=== PATIENT | male | born 1970 | race Caucasian/White ===

== ENCOUNTER 2025-02-12 10:01 | Emergency (ER) | payer SELFPAY ==
[2025-02-12 10:03] VITALS: BP 136/75
--- NOTE | 2025-02-12 10:54 | ED.GENMED ---
History of Present Illness
General
Chief Complaint: Musculo-Skeletal Complaint
Time Seen by Provider: 02/12/25 10:53
History of Present Illness
History of Present Illness:
CHIEF COMPLAINT(S)
Swelling and bruising of the left leg.
HISTORY OF PRESENT ILLNESS
The patient is a 54-year-old male who presents with swelling and ecchymosis of the left leg. The symptoms began Wednesday night when the patient accidentally injured the foot with a serafin. The patient describes the foot as having been swollen due to a
pre-existing condition of diabetes in the family, but the swelling increased significantly following the injury. The incident involved a heavy metal serafin striking the foot, causing immediate bruising and further swelling. The patient had an X-ray
earlier today at an urgent care facility, which showed no fractures but prompted further evaluation for potential blood clots. The ultrasound reveals clots low in the leg, but not in an area typically associated with higher risk. The patient denies
any respiratory difficulties and overall feels well.
EXTERNAL RECORDS REVIEWED
The patient had an X-ray performed earlier today at an urgent care facility, reviewed and noted to be without fractures.
CHRONIC MEDICAL CONDITIONS SIGNIFICANTLY AFFECTING CARE
Diabetes (implied by family history and patients acknowledgment of swelling due to diabetes history).
SOCIAL HISTORY
The patient has a history of smoking.
PHYSICAL EXAM
- Significant swelling noted in the left leg below the knee.
- Ecchymosis observed on the lateral aspect of the left foot.
- Delayed capillary refill of about three seconds bilaterally.
- Nursing notes reviewed and vital signs reviewed.
PLAN
- Initiate anticoagulation therapy consideration. Due to potential cost concerns, consultation with social work is recommended to determine if Coumadin might be a cost-effective option.
- Additional blood work to be performed.
- Monitoring and reassessment of the patients condition, particularly the swelling and potential impact of anticoagulation.
DIFFERENTIAL DIAGNOSIS
The Differential Diagnosis includes, in no particular order, and is not limited to:
- Deep Vein Thrombosis (DVT)
- Superficial Thrombophlebitis
- Cellulitis
- Hematoma
- Venous Insufficiency
- Lymphedema
- Compartment Syndrome
- Trauma
- Peripheral Vascular Disease
- Diabetic Peripheral Neuropathy
REVIEW OF OLD RECORDS
The patient was seen in the emergency room 2022 diagnosed with UTI
NUMBER AND COMPLEXITY OF PROBLEMS ADDRESSED AT THE ENCOUNTER
Chronic conditions affecting care: Diverticular disease, history of substance abuse
Acute Exacerbation and/or Progression of Chronic Illness:
AMOUNT AND/OR COMPLEXITY OF DATA TO BE REVIEWED AND ANALYZED PERSONALLY REVIEWED
EKG:
CT:
X-rays:
Laboratory Studies: Hemoglobin 12.2, normal renal function
Ultrasound: Evidence of peroneal and popliteal vein clots
Clinical information was obtained by an independent historian: None needed
Prescriptions/Medications Considered but not given:
Further testing considered but not performed:
RISK OF COMPLICATIONS AND/OR MORBIDITY OR MORTALITY OF PATIENT MANAGEMENT
Social determinants of health affecting care: Smoker
Discussion with other providers: I discussed case with care management as patient has no insurance
Escalation of care including admission/observation vs risk of discharge considered:
ANY OTHER UPDATES
The patient is found to have peroneal and popliteal vein clots. Would normally placed on Eliquis however the patient has no insurance. I discussed with care management. Will also check labs.
Care management evaluate the patient and also gave the 30-day coupon for Eliquis to the patient. I sent a prescription for Eliquis to his pharmacy. Basic labs unremarkable.
Past History
Past History
ED Past Medical History: None and Other (prostatitis )
ED Past Surgical History: Tonsilectomy
Social History
Tobacco: Smoker (1 PPD X 26 years )
Alcohol: None
Drug: None
Personal:
Living: with family
Employment: Not employed
Phy Exam
Physical Exam
Physical Exam:
See HPI
Course
Orders/Labs/Results
Orders:
Orders
02/12/25 10:07
US Periph Venous LOWER Ext LT Urgent
Comment:
Reason For Exam: swelling, pain
02/12/25 12:31
Complete Blood Count/With Diff Urgent
Comprehensive Metabolic Panel Urgent
Protime/PTT Urgent
02/12/25 13:06
Apixaban [Eliquis] 10 mg PO NOW STA
Abnormal Lab Results
02/12/25
12:31
RBC 3.79 L 10^6/uL
(4.70-6.10)
Hgb 12.2 L g/dL
(13.0-18.0)
Hct 37.0 L %
(39.0-52.0)
MCV 97.6 H fL
(80.0-94.0)
MCH 32.2 H pg
(27.0-31.0)
Carbon Dioxide 31 H mmol/L
(22-30)
BUN 24 H mg/dl
(9-20)
02/12/25 12:31
02/12/25 12:31
Vital Signs
Initial and Last Documented VS:
Initial Vital Signs
Temp Pulse Resp BP Pulse Ox
36.8 C 60 16 136/75 99
02/12/25 10:03 02/12/25 10:03 02/12/25 10:03 02/12/25 10:03 02/12/25 10:03
Last Documented Vital Signs
Temp Pulse Resp BP Pulse Ox
36.8 C 52 16 115/64 99
02/12/25 10:03 02/12/25 11:27 02/12/25 11:27 02/12/25 11:27 02/12/25 11:27
*Critical Care Note
Total Time (30-74mins, 75-104mins- exclusive of procedures): Not Applicable
ED Attending Note
-
Portions of this chart may have been created with voice recognition software.� Occasional wrong word or��sound alike� substitutions may have occurred due to the inherent limitations of voice recognition software.
Discharge Plan
Departure
Patient Disposition: Home (Routine Discharge)
Date of Disposition: 02/12/25
Time of Disposition: 13:06
Patient with high blood pressure during this ER visit?: Yes
Discharge Problem:
Deep vein thrombosis
Instructions: Deep vein thrombosis (DVT) - ED discharge instructions, BLOOD PRESSURE
Prescriptions:
New
Eliquis DVT-PE Treat 30D Start 5 mg (74 tabs) tablets,dose pack
5 mg PO ONCE Qty: 74 0RF
Rx Instructions:
Take 2 pills twice daily for 7 days then 1 pill twice daily
No Action
azithromycin 250 MG tablet
250 mg PO DAILY Qty: 6 0RF
amoxicillin 875 MG tablet
875 mg PO BID Qty: 20 0RF
hydrocodone-acetaminophen [Vicodin] 1 EACH tablet
1 ea PO Q4HPRN PRN (Reason: pain) Qty: 10 0RF
levofloxacin 500 mg tablet
500 mg PO DAILY 7 Days Qty: 7 0RF
Referrals:
[facility] [Outside]
NONE,* [Family Provider, Internal Medicine]
Activity Restrictions/Additional Instructions:
I am sending a prescription for Eliquis to your pharmacy. We had social work give you discount coupon to help make this medication more affordable. Return here if worse or other concerns. I have also given you the contact information for the [facility].
There is nonocclusive clot in the popliteal vein, and occlusive clot in the peroneal vein.
ELIQUIS: Take 2 pills twice daily for 7 days then 1 pill twice daily
Interventions
Interventions:
*Risk Screen - Suicide Last Done: 02/12/25 11:20
*General Assessment Last Done: 02/12/25 11:20
*Neglect/Abuse Screening Last Done: 02/12/25 11:20
*ED- Fall Risk Assessment Last Done: 02/12/25 11:20
*ED COVID-19 Vaccine History Last Done: 02/12/25 11:20
ED-Musculoskeletal Assessment Last Done: 02/12/25 11:20
Discharge Date and Time
Print Language: ARGENTINE
[2025-02-12 11:20] VITALS: BMI 20.6
[2025-02-12 11:27] VITALS: BP 115/64
[2025-02-12 12:41] LABS: % Basophils 0.8 % (0-2); % Eosinophils 2.5 % (0-6); % Immature Granulocytes 0.2 % (0-0.5); % Lymphocytes 27.1 % (20.5-51.1); % Monocytes 5.5 % (1.7-9.3); % Neutrophils 63.9 % (42.2-75.2); Absolute Basophils 0.1 10^3/uL (0-0.2); Absolute Eosinophils 0.2 10^3/uL (0-0.7); Absolute Lymphocytes 2.3 10^3/uL (1.2-3.4); Absolute Monocytes 0.5 10^3/uL (0.1-0.6); Absolute Neutrophils 5.4 10^3/uL (1.4-6.5); Hemoglobin 12.2 g/dL (13.0-18.0); Mean Corpuscular Hgb 32.2 pg (27.0-31.0); Mean Corpuscular Volume 97.6 fL (80.0-94.0); Mean Platelet Volume 9.8 fL (7.4-10.4); Nucleated Red Blood Cells % 0 % (-); Platelet Count 153 10^3/uL (130-400); Red Blood Cell Count 3.79 10^6/uL (4.70-6.10); White Blood Cell Count 8.5 10^3/uL (4.8-10.8)
[2025-02-12 12:58] LABS: INR 0.93; PT 12.8 Sec (11.4-14.6)
[2025-02-12 12:59] LABS: APTT 26.7 Sec (23.4-35.0)
[2025-02-12 13:11] LABS: ALT (SGPT) 16 U/L (0-50); AST (SGOT) 26 U/L (17-59); Albumin 4.3 g/dl (3.5-5.0); Alkaline Phosphatase 75 U/L (38-126); Blood Urea Nitrogen 24 mg/dl (9-20); Calcium 9.2 mg/dl (8.4-10.2); Carbon Dioxide 31 mmol/L (22-30); Chloride 104 mmol/L (98-107); Estimated Creatinine Clearance 87 ml/min; Glucose 94 mg/dl (70-99); Potassium 4.3 mmol/L (3.5-5.1); Sodium 139 mmol/L (135-145); Total Bilirubin 0.4 mg/dl (0.2-1.3); Total Protein 6.7 g/dl (6.3-8.2); eGFR > 60.00
[2025-02-12] MEDS: ELIQUIS 10 MG PO (13:17)
--- NOTE | 2025-02-12 13:30 | EDRN ---
Reviewed discharge instructions with patient. Verbalized understanding. Ambulated with steady gait to the lobby.
[2025-02-12 13:31] VITALS: BP 118/74
--- NOTE | 2025-02-12 14:26 | CM ---
ED CM consult for Jan, bedside meeting with patient
Patient currently uninsured, missed sign up for employer benefits, plans to sign up this year during next enrollment period in June
Jan trial card provided along with [facility] information
He will call to establish clinic upon discharge
Able to borrow money from family if needed
Questioned if injury would be covered under Workman's Comp, deferred to his employer [employer]
No further CM needs at this time.
== END 2025-02-12 13:32 | disposition home or self-care (01) ==
LOC: EMR 10:01
PROVIDERS: EMERGENCY PHYSICIAN Emergency Medicine
DX: I82.432 Acute embolism and thrombosis of left popliteal vein (principal); I82.452 Acute embolism and thrombosis of left peroneal vein; R03.0 Elevated blood-pressure reading, without diagnosis of hypertension; E11.9 Type 2 diabetes mellitus without complications; F17.210 Nicotine dependence, cigarettes, uncomplicated; Z59.71 Insufficient health insurance coverage
CPT/HCPCS: 99285; 80053; 85025; 85610; 85730; 93971